=== PATIENT | male | born 1955 | race Caucasian/White ===

== ENCOUNTER 2020-10-16 19:58 | Emergency (ER) | payer MEDICARE ==
[2020-10-16] MEDS ORDERED: Ketorolac Tromethamine 60 MG/2 ML VIAL ONE (20:58)
[2020-10-16 21:35] LABS: #Basophils 0.1 thou/uL (0.0-0.2); #Eosinphils 0.1 thou/uL (0.0-0.7); #Monocytes 0.6 thou/uL (0.11-0.59); #Neutrophils 13.3 thou/uL (1.40-6.50); %Basophils 0.5 % (0.0-1.0); %Eosinophils 0.5 % (0.0-10.0); %Lymphocytes 6.5 % (21.0-51.0); %Monocytes 3.8 % (0.0-10.0); %Neutrophils 88.7 % (42.0-75.0); Hemoglobin 11.9 g/dL (14.0-18.0); Mean Corpuscular HGB CONC 32.3 g/dL (32.0-36.0); Mean Corpuscular Hemoglobin 31.1 pg (27.0-31.0); Mean Corpuscular Volume 96.4 fL (78.0-98.0); Mean Platelet Volume 7.3 fL (7.4-10.4); Platelet Count 119 thou/uL (130-400); RBC Distribution Width 14.8 % (11.5-14.5); Red Blood Cell (RBC) Count 3.83 mill/uL (4.70-6.10)
[2020-10-16 21:49] LABS: ALT (SGPT) 23 U/L (8-55); AST (SGOT) 46 U/L (5-34); Albumin 4.4 g/dL (3.4-4.8); Alkaline Phosphatase 65 U/L (40-110); Anion Gap 16 mmol/L (10-20); BUN (Urea Nitrogen) 29 mg/dL (8.4-25.7); Bilirubin, Total 0.6 mg/dL (0.2-1.2); Calc. Creatinine Clearance 0 mL/min (70-130); Calcium 9.8 mg/dL (7.8-10.44); Carbon Dioxide 20 mmol/L (23-31); Chloride 111 mmol/L (98-107); Globulin 4.3 g/dL (2.4-3.5); Glucose 132 mg/dL (80-115); Potassium 3.6 mmol/L (3.5-5.1); Protein, Total 8.7 g/dL (5.8-8.1); Sodium 143 mmol/L (136-145)
[2020-10-16] MEDS ORDERED: Ondansetron PF 4 MG/2 ML Vial ONE (22:40)
[2020-10-16] MEDS ORDERED: Morphine 2 MG/ML VIAL ONE (22:40)
[2020-10-16 23:29] LABS: SARS-CoV-2 NAA Rapid Test Not Detected (NotDetected)
[2020-10-16 23:50] LABS: Platelet Morphology Comment Appears Decreased
== END 2020-10-17 00:11 | disposition short-term general hospital (02) ==
LOC: EDBD 19:58 → BURERS 19:58
DX: S22.42XA Multiple fractures of ribs, left side, initial encounter for closed fracture (principal); S12.300A Unspecified displaced fracture of fourth cervical vertebra, initial encounter for closed fracture; S22.051A Stable burst fracture of T5-T6 vertebra, initial encounter for closed fracture; S22.040A Wedge compression fracture of fourth thoracic vertebra, initial encounter for closed fracture; S22.050A Wedge compression fracture of T5-T6 vertebra, initial encounter for closed fracture; Z20.822 Contact with and (suspected) exposure to COVID-19; W55.12XA Struck by horse, initial encounter
CPT/HCPCS: 71250; 72040; 72072; 72100; 72125; 74177; 80053; 85025; J2270; U0002; 96374; 96375; J1885; J2405